=== PATIENT | male | born 1960 | race Caucasian/White ===

== ENCOUNTER 2019-12-09 06:24 | Observation (INO) ==
--- NOTE | 2019-11-19 14:46 | PAT Medication Instructions ---
Medication Instructions Date of Service November 19, 2019 Home Medications Medication Instructions Recorded miscellaneous medical supply #1 ea 11/11/18 loratadine 10 mg tablet 10 mg PO QAM atorvastatin 20 mg PO QPM celecoxib [Celebrex] 200 mg PO DAILY PRN clobetasol 1 appln TOP BID PRN clotrimazole-betamethasone 1 appln TOP BID PRN finasteride [Propecia] 1 mg PO QAM omeprazole 20 mg PO QPM ASK your surgeon for instructions celecoxib [Celebrex] 200 mg PO DAILY PRN STOP taking 24 hours before surgery clobetasol 1 appln TOP BID PRN clotrimazole-betamethasone 1 appln TOP BID PRN DO NOT take the morning of surgery loratadine 10 mg tablet 10 mg PO QAM Take morning of surgery With a small sip of water, OTHERWISE NOTHING TO EAT OR DRINK AFTER MIDNIGHT: finasteride [Propecia] 1 mg PO QAM Take evening before surgery atorvastatin 20 mg PO QPM omeprazole 20 mg PO QPM Other Notes If you have any questions please call us at [phone] or [phone] or [phone] or [phone]
--- NOTE | 2019-11-24 15:03 | Anesthesiology Consultation ---
Date of Service November 24, 2019 Assessment & Plan (1) Encounter for pre-operative examination: COVID Status: As of 11/23 assessment, patient denies travel to endemic area, known exposure/sick contacts, or symptoms of COVID19. Patient instructed that they and their household members must follow strict social distancing guidelines, wear a mask in public and avoid travel for 14 days prior to surgery. Preoperative COVID19 testing to be completed prior to surgery per surgeon's a rrangements. Patient made aware to self-isolate as much as possible between COVID testing and surgery. Chart Review Chart Review: Acceptable Risk for Surgery and Patient seen in Pre Admission Testing Teaching & Discussion Instructed NPO after midnight before surgery, except medications with 15 cc of water. Medication instructions provided according to the PAT guidelines. History Surgery Operation Date: 12/09/19 07:45 Proposed Procedures p C5-C7 Anterior Cervical Discectomy and Fusion, Spinal Cord Monitoring - Mateusz Kendall DO Height/Weight Height: 6 ft Weight: 96.7 kg Allergies Allergy/AdvReac Type Severity Reaction Status Date / Time Penicillins Allergy Mild Unknown Verified 11/18/19 11:59 Medications Home Medications Medication Instructions Recorded Confirmed Last Taken loratadine 10 mg tablet 10 mg PO QAM 08/20/18 11/18/19 Unknown miscellaneous medical supply #1 ea 11/11/18 11/18/19 Unknown atorvastatin 20 mg PO QPM 11/18/19 11/18/19 Unknown celecoxib [Celebrex] 200 mg PO DAILY PRN 11/18/19 11/18/19 Unknown clobetasol 1 appln TOP BID PRN 11/18/19 11/18/19 Unknown clotrimazole-betamethasone 1 appln TOP BID PRN 11/18/19 11/18/19 Unknown finasteride [Propecia] 1 mg PO QAM 11/18/19 11/18/19 Unknown omeprazole 20 mg PO QPM 11/18/19 11/18/19 Unknown Past Medical History Medical History Barretts esophagus GERD (gastroesophageal reflux disease) Hyperlipemia Migraines Osteoarthritis Exercise / Class Metabolic Activity II 4-5 Yardwork/Stairs/Walk up hill Past Family History Family History Father Prostate cancer Hypertension Unknown Hyperthyroidism Mother Parkinson disease Other No family history of adverse response to anesthesia Denies family history of Ovarian cancer Myocardial infarction Breast cancer Colorectal cancer Past Surgical History Surgical History History of colonoscopy History of esophagogastroduodenoscopy (EGD) History of lumbar laminectomy L5-S1 2006 History of root canal procedure Past Anesthesia History No Hx of Anesthesia Complications and No Family Hx of Anesthesia Complications History of PONV No Hx of PONV and No Hx of Motion Sickness STOP BANG Total 4 Social History Smoking Status: Never smoker Do You Dip or Chew Tobacco: No Hx Alcohol Use: Yes Alcohol type: beer, wine and hard liquor alcohol intake frequency: a few times a week Hx Substance Use: Yes substance use type: marijuana Last Used Substance Other:: 2 weeks ago Review of Systems Pt denies any recent chest pain, shortness of breath, palpitations, cough, fever, URI, or uncontrolled acid reflux. Physical Exam Vital Signs BP: 125/75 P: 64bpm SPO2: 97% RA T: 98.6 F R: 16 ENMT Mouth: + dental restorations (2 crowns on R lower side); no chipped teeth and no loose teeth Thyromental Distance: > or= 3.5 Finger Breadths Mallampati Class: II Neck normal visual inspection; neck extension not limited Respiratory normal respiratory effort Auscultation: lungs clear to auscultation bilaterally Cardiovascular Rate/Rhythm: regular rate and regular rhythm Heart Sounds: no murmur Vessels: no carotid bruit Extremities: no edema Testing Laboratory Results PT 10.6 Seconds (9.0-12.0) 11/24/19 15:10 INR 1.0 (0.9-1.1) 11/24/19 15:10 APTT 29.6 Seconds (21.0-31.0) 11/24/19 15:10 Urine Color Yellow 11/24/19 15:10 Urine Appearance Clear (Clear) 11/24/19 15:10 Urine pH 5.0 (4.5-7.5) 11/24/19 15:10 Ur Specific [place] 1.021 (1.000-1.030) 11/24/19 15:10 Urine Protein Negative (Negative) 11/24/19 15:10 Urine Glucose (UA) Negative (Negative) 11/24/19 15:10 Urine Ketones Negative (Negative) 11/24/19 15:10 Urine Nitrite Negative (Negative) 11/24/19 15:10 Ur Leukocyte Esterase Negative (Negative) 11/24/19 15:10 Blood Type O Positive 11/24/19 15:10 Antibody Screen NEGATIVE 11/24/19 15:10 11/13/19 WBC: 5.22 H/H: 15.4/46.3 PLATELETS: 250 SODIUM: 141 POTASSIUM: 4.1 CHLORIDE: 109 CO2: 26 BUN: 14 CREATININE: 0.95 GLUCOSE: 86 Electrocardiogram Date: 11/24/19 Findings: + SB @ (57bpm) Chest X-Ray Date: 11/24/19 Findings: + NAD
--- NOTE | 2019-11-24 15:40 | XRay Report ---
TWO VIEW CHEST CLINICAL HISTORY: Preoperative examination. FINDINGS: PA and lateral chest radiographs are compared to study dated 05/22/2013. The cardiomediastin al silhouette is unremarkable. The lungs and pleural spaces are clear. There is no pneumothorax. The bony thorax appears intact. IMPRESSION: No active disease in the chest. ACT 112: Negative or not required by law. Electronically signed by: Ilia Herrmann M.D. 11/24/2019 3:38 PM
[2019-11-24 16:09] LABS: Appearance Urine Clear (Clear); Bilirubin Urine Negative (Negative); Blood Urine Negative (Negative); Color Urine Yellow; Glucose Urine UA Negative (Negative); Ketones Urine Negative (Negative); Leukocyte Esterase Urine Negative (Negative); Nitrite Urine Negative (Negative); Protein Urine Negative (Negative); Specific Gravity Urine 1.021 (1.000-1.030); Urobilinogen Urine Negative (Negative)
[2019-11-24 16:32] LABS: Partial Thromboplastin Ratio 1.1; Partial Thromboplastin Time 29.6 Seconds (21.0-31.0); Prothrombin Time 10.6 Seconds (9.0-12.0)
--- NOTE | 2019-11-25 06:12 | Electrocardiogram Report ---
Test Reason : Blood Pressure : / mmHG Vent. Rate : 057 BPM Atrial Rate : 057 BPM P-R Int : 162 ms QRS Dur : 080 ms QT Int : 456 ms P-R-T Axes : 041 059 023 degrees QTc Int : 443 ms Sinus bradycardia Otherwise normal ECG No previous ECGs available Confirmed by Brice Landaverde ([id number]) on 11/25/2019 6:12:24 AM Referred By: Mateusz Kendall Confirmed By:Brice Landaverde
[~2019-12-09 06:24] MED LIST: CLINDAMYCIN 600 MG/54 ML BAG IV SCH; LR 15ML/HR IV SCH
[2019-12-09] MEDS ORDERED: MIDAZOLAM HCL 1 MG/ML 2ML VIAL ONE (06:43)
[2019-12-09] MEDS ORDERED: PROPOFOL IV EMULSION 10 MG/ML 20 ML VIAL IV ONE (06:43)
[2019-12-09] MEDS ORDERED: ONDANSETRON INJ 2 MG/ML 2 ML VIAL ONE (06:43)
[2019-12-09] MEDS ORDERED: LIDOCAINE HCL 2% 2 ML VIAL/AMP(20MG/ML) INFIL ONE (06:43)
[2019-12-09] MEDS ORDERED: fentaNYL citrate 100 MCG/2 ML VIAL ONE (06:43)
[2019-12-09] MEDS ORDERED: ROCURONIUM BROMIDE 10 MG/ML 5 ML VIAL IV ONE ×5 (06:46→08:30)
[2019-12-09] MEDS ORDERED: SUCCINYLCHOLINE 100MG/5ML SYR IV ONE (06:46)
[2019-12-09] MEDS ORDERED: PROPOFOL IV EMULSION 10 MG/ML 100 ML VIAL IV ONE (06:46)
[2019-12-09] MEDS: GABAPENTIN 600 MG DOSE PO SCH (06:58)
[2019-12-09] MEDS ORDERED: HYDROmorphone INJ 1 MG/ML SYRINGE IV PRN (07:01)
[2019-12-09] MEDS ORDERED: PHENYLEPHRINE 100MCG/ML 5ML SYR IV PRN (07:01)
[2019-12-09] MEDS ORDERED: ePHEDrine sulfate 50 MG/ML AMP IV PRN (07:01)
[2019-12-09] MEDS ORDERED: LABETALOL HCL IV 5 MG/ML 20ML IV PRN (07:01)
[2019-12-09] MEDS ORDERED: ATROPINE SULFATE 0.1 MG/ML 10ML SYR IV PRN (07:01)
[2019-12-09] MEDS ORDERED: MEPERIDINE HCL 25 MG/ML CARP/VIAL IV PRN (07:01)
[2019-12-09] MEDS ORDERED: ONDANSETRON INJ 2 MG/ML 2 ML VIAL IV PRN (07:01)
[2019-12-09] MEDS ORDERED: BACITRACIN INJ 50,000 UNIT VIAL ONE (07:12)
--- NOTE | 2019-12-09 07:31 | History & Physical Bridge Note ---
Date of Service December 09, 2019 History & Physical Bridge Note I have examined the patient, reviewed the History & Physical and in the interval since the performance of the History & Physical I have noted the following changes of clinical significance: no changes noted
--- NOTE | 2019-12-09 07:35 | History & Physical Report ---
Date of Service December 09, 2019 Assessment & Plan (1) Cervical stenosis of spinal canal: Admission and Anticipated Discharge Date Admission Date: C5-C7 anterior cervical discectomy and fusion History of Present Illness Chief Complaint: Neck and arm pain Primary Care Provider: Alex Mcmahan MD This is a 51-year-old male who presents with chronic persistent neck and arm pain after failing course of nonoperative care is here for surgical invention. Allergies Allergy/AdvReac Type Severity Reaction Status Date / Time Penicillins Allergy Mild Unknown Verified 12/09/19 06:39 Home Medications Home Medications Medication Instructions Recorded Confirmed Type loratadine 10 mg tablet 10 mg PO QAM 08/20/18 12/09/19 History miscellaneous medical supply #1 ea 11/11/18 11/26/19 Rx atorvastatin 20 mg PO QPM 11/18/19 12/09/19 History celecoxib [Celebrex] 200 mg PO DAILY PRN 11/18/19 12/09/19 History clobetasol [Temovate] 1 appln TOP BID PRN 11/18/19 12/09/19 History clotrimazole-betamethasone 1 appln TOP BID PRN 11/18/19 12/09/19 History finasteride [Propecia] 1 mg PO QAM 11/18/19 12/09/19 History omeprazole 20 mg PO QPM 11/18/19 12/09/19 History Past Med/Surg History Medical History Barretts esophagus GERD (gastroesophageal reflux disease) Hyperlipemia Migraines Osteoarthritis Surgical History History of colonoscopy History of esophagogastroduodenoscopy (EGD) History of lumbar laminectomy L5-S1 2006 History of root canal procedure Family History Father Prostate cancer Hypertension Unknown Hyperthyroidism Mother Parkinson disease Other No family history of adverse response to anesthesia Denies family history of Ovarian cancer Myocardial infarction Breast cancer Colorectal cancer Social History Smoking Status: Never smoker Second Hand Exposure: No; Do You Dip or Chew Tobacco: No; Hx Alcohol Use: Yes Alcohol type: beer, wine and hard liquor Alcohol Intake Frequency: 2-3 x/Week Hx Substance Use: No Preferred Language: Fijian Communication Ability: Effective Visual Impairment: No Limitations Hearing Ability: Normal Railway [employer] Manager Required: No Beliefs That Will Affect Care: None marital status: Current Living Situation: Alone current occupational status: employed current occupation: Landlord How many Children do You have: 0 Feels Safe at Home: Yes Safety Concerns: Feels Safe At This Time Childhood Exposure to Second-Hand Smoke: No caffeine: Yes Dental Care, Regularly: Yes Physical Activity Frequency: 3-4 Times per Week Seatbelt Use: never Sunscreen Use: No Assistive Devices: None Physical Exam Physical Exam: Patient is alert and oriented neurologically intact. Heart regular rate and rhythm. Lungs clear to auscultation. Results & Data ([facility]) Vital Signs (Past 12 Hours) Vital Signs Temp Pulse Resp BP Pulse Ox 12/09/19 06:47 36.6 C 66 20 120/92 93
[2019-12-09] MEDS ORDERED: HYDROmorphone INJ 2 MG/ML SYR/VIAL ONE (08:11)
[2019-12-09] MEDS ORDERED: FLOSEAL HEMOSTATIC MATRIX 10ML TOP ONE (08:30)
--- NOTE | 2019-12-09 09:22 | Operative Report ---
Post Operative Report Pre & Post Diagnosis Operation Date: 12/09/19 07:45 Pre-Op Diagnosis: Spinal Stenosis, Cervical Region Post-Op Diagnosis: Spinal Stenosis, Cervical Region I identified the patient and participated in the time-out.: Yes Procedure Operation Date: 12/09/19 07:45 Actual Procedures #1 anterior cervical discectomy with bilateral foraminotomies C5-6 and C6-7. #2 anterior cervical arthrodesis C5-6 and C6-7. #3 placement of Inspira cage 7 mm in height filled with DBM at C5-6 and 8 mm in height at C6-C7. #4 application 5 complete screws across C5 to see 7. Surgeon Mateusz Kendall, Social Media Manager Ramona Pulliam Estimated Blood Loss 20 Findings Consistent with Post-Op Diagnosis Specimens None Indications This is a 59-year-old male who presents with bulge diagnosis from aggressive nonoperative care is here for debridement procedure. Description of Procedure Patient is met with identified informed consent obtained. Patient was then taken to the operative suite underwent a vaginal placement spine position just above the head [place] head prepared over the promises well-padded eyes inspected to ensure no external pressure placed upon up at this point the anterior cervical spine was prepped and draped in normal sterile fashion. The assistance of fluoroscopy identified the C5-6 level and a transverse incision was placed along the right anterior aspect of the cervical spine overlying his region. Sharp dissection with the assistance of bipolar electrocautery was performed down to and exposing the anterior cervical spine from C5-C7. A separate retractor was placed. Then performed a complete discectomy C5-6 out to the uncovertebral joints bilaterally. [place] distracting pins utilized to assist in visualization. I removed all posterior annular fibers longitudinally with bilateral foraminotomies performed. Endplates were then burred to subcort ical bleeding bone and a 7 mm spiral cage filled with DBM tapped in position. I then proceeded to C6-C7. [place] distracting pins again utilized. Removed all posterior annular fibers longitudinal limit bilateral foraminotomies performed. Endplates producing cortical bone and an 8 mm spiral cage filled with DBM tapped in position. Distraction apparatus was removed all anterior osteophytes produ gabino with cortical surface and carnes plate was applied with the assistance of fluoroscopy. The incision was then copiously irrigated explored to ensure no damage to surrounding structures remaining bleeding. 10 round PIERCE drain inserted. The incision was then closed with 2-0 Vicryl in the fascia and a 4 Monocryl for final skin closure. Steri-Strips sterile dosings placed. Patient woken taken back in stable condition. Please note spinal cord monitoring was relaxed that the procedure and no changes noted. Lastly caregiver was present at the entire surgery to vault the patient positioning complex portions of the surgery and possible closure. I attest to the content of the Intraoperative Record and any orders documented therein. Any exceptions are noted below.
--- NOTE | 2019-12-09 09:58 | Fluoroscopy Report ---
FL cervical 2-3V CLINICAL HISTORY: ACDF C5-C7 COMPARISON STUDY: None. FLUOROSCOPY TIME: 12 seconds. FINDINGS: 3 fluoroscopic spot images of the cervical spine demonstrate anterior cervical discectomy a nd fusion from C5 through C7. The hardware appears intact. An endotracheal tube is in place. IMPRESSION: Fluoroscopy provided for C5-C7 ACDF. ACT 112: Negative or not required by law. Electronically signed by: Alvin Sapp M.D. 12/09/2019 9:57 AM
[2019-12-09] MEDS: fentaNYL citrate 100 MCG/2 ML VIAL IV PRN ×2 (10:10→10:15)
--- NOTE | 2019-12-09 10:51 | Anesthesiology Progress Note ---
Date of Service December 09, 2019 Anesthesia Post Procedure Vital Signs Vital Signs: Temp Pulse Pulse Resp BP BP Pulse Ox 12/09/19 10:45 58 L 16 135/82 97 12/09/19 10:35 51 L 16 132/81 97 12/09/19 10:25 36.0 C L 51 L 16 125/79 94 12/09/19 10:15 53 L 14 100/47 L 94 12/09/19 10:05 48 L 15 129/82 96 12/09/19 09:55 52 L 16 134/92 95 12/09/19 09:46 36.1 C L 64 16 134/90 97 12/09/19 06:47 36.6 C 66 20 120/92 93 Pain Intensity Posterior Neck: Pain Intensity: 4 Transfer of Care Handoff Completed per policy Notes Mental Status: alert / awake / arousable Patient Amnestic to Procedure: Yes Nausea / Vomiting: adequately controlled Pain: adequately controlled Airway Patency, RR, SpO2: stable & adequate BP & HR: stable & adequate Hydration State: stable & adequate Anesthetic Complications: no major complications apparent and Pt Satisfied with anesthetic care Notes: The patient is awake and comfortable. His neck does not appear swollen.
[2019-12-09] MEDS ORDERED: hydrOXYzine HCl 25 MG TAB PO PRN (11:30)
[2019-12-09] MEDS ORDERED: RACEPINEPHRINE 2.25% NEBU SOLN 0.5 ML VIAL INH PRN (11:30)
[2019-12-09] MEDS ORDERED: ONDANSETRON 4 MG OD TAB PO PRN (11:30)
[2019-12-09] MEDS ORDERED: FAMOTIDINE 20 MG TAB PO PRN (11:30)
[2019-12-09] MEDS ORDERED: ACETAMINOPHEN 1,000 MG/100 ML VIAL IV PRN (11:30)
[2019-12-09] MEDS ORDERED: DO NOT ADMINISTER PNEUMOCOCCAL VACCINE PRN (11:30)
[2019-12-09] MEDS ORDERED: LORazepam 0.5 MG TAB PO PRN (11:30)
[2019-12-09] MEDS ORDERED: DO NOT ADMINISTER FLU VACCINE PRN (11:30)
[2019-12-09] MEDS ORDERED: diphenhydrAMINE Capsule 25 MG CAP PO PRN (11:30)
[2019-12-09] MEDS ORDERED: ACETAMINOPHEN 500 MG TAB PO PRN (11:30)
[2019-12-09] MEDS ORDERED: oxyCODONE HCL IR 5 MG TAB (IMMEDIATE RELEASE) PO PRN (11:30)
[2019-12-09] MEDS ORDERED: HYDROmorphone INJ 0.5 MG/0.5 ML SYR IV PRN (11:30)
[2019-12-09] MEDS ORDERED: METOCLOPRAMIDE HCL INJ 5 MG/ML 2 ML VIAL IV PRN (11:30)
[2019-12-09] MEDS ORDERED: MAGNESIUM HYDROXIDE SUSP 30 ML UDC PO PRN (11:30)
[2019-12-09] MEDS ORDERED: SOD PHOSPHATE/SOD BIPHOSPHATE ENEMA 132 ML BTL PR PRN (11:30)
[2019-12-09] MEDS ORDERED: ALUMINUM/MAGNESIUM SUSP 30 ML UDC PO PRN (11:30)
[2019-12-09] MEDS ORDERED: NALOXONE HCL 0.4 MG/1 ML VIAL/CARP IV PRN (11:30)
[2019-12-09] MEDS ORDERED: LORazepam 0.5 MG/1 ML VIAL IV PRN (11:30)
[2019-12-09] MEDS ORDERED: DEXAMETHASONE SOD PHOSPHATE 8 MG in SYRINGE 0 ML IV PRN (11:30)
[2019-12-09] MEDS ORDERED: PROMETHAZINE HCL 12.5 MG in SODIUM CHLORIDE 0.9% 50 ML IV PRN (11:30)
[2019-12-09] MEDS ORDERED: CLOBETASOL PROPIONATE 0.05% OINT 15 GM TUBE EXT PRN (11:42)
[2019-12-09] MEDS: LACTATED RINGER'S 1,000 ML IV SCH ×2 (14:10→23:46)
[2019-12-09] MEDS: ONDANSETRON INJ 2 MG/ML 2 ML VIAL IV PRN (14:11)
[2019-12-09] MEDS: HYDROmorphone INJ 1 MG/ML SYRINGE IV PRN ×2 (14:25→18:03)
[2019-12-09] MEDS: CLINDAMYCIN 600 MG in DEXTROSE 5% 50 ML IV SCH ×2 (16:25→23:47)
[2019-12-09] MEDS ORDERED: DOCUSATE SODIUM/SENNA 50/8.6MG TAB PO SCH (21:00)
[2019-12-09] MEDS ORDERED: ATORVASTATIN 20 MG TAB PO SCH (21:00)
[2019-12-09] MEDS ORDERED: PANTOprazole 40 MG TAB PO SCH (21:00)
[2019-12-09] MEDS: traMADol HCL 50 MG TABLET PO PRN (23:43)
[2019-12-10] MEDS: GABAPENTIN 600 MG DOSE PO SCH (05:52)
[2019-12-10] MEDS ORDERED: POLYETHYLENE (MIRALAX) 17 GM PACK PO SCH (06:00)
[2019-12-10] MEDS: ONDANSETRON INJ 2 MG/ML 2 ML VIAL IV PRN (07:33)
[2019-12-10] MEDS: traMADol HCL 50 MG TABLET PO PRN (07:33)
[2019-12-10] MEDS ORDERED: DEXAMETHASONE SOD PHOSPHATE 6 MG in SYRINGE 0 ML IV ONE (07:45)
[2019-12-10] MEDS ORDERED: LORATADINE 10 MG TAB PO SCH (09:00)
--- NOTE | 2019-12-10 12:31 | Discharge Summary ---
Date of Service December 10, 2019 Admission HPI Per Admitting Provider This is a 51-year-old male who presents with chronic persistent neck and arm pain after failing course of nonoperative care is here for surgical invention. Principal Diagnosis Cervical spinal stenosis with radiculopathy Discharge Data Allergies Allergy/AdvReac Type Severity Reaction Status Date / Time Penicillins Allergy Mild Unknown Verified 12/09/19 06:39 Procedures Performed Operation Date: 12/09/19 07:45 Actual Procedures p C5-C7 Anterior Cervical Discectomy and Fusion, Spinal Cord Monitoring - Mateusz Kendall DO Ordered Studies 12/09/19 07:45 FL cervical 2-3V Routine FL fluoroscopy <1hr Routine Hospital Course (1) Cervical stenosis of spinal canal: Underwent anterior cervical discectomy fusion tolerated so was taken to orthopedic for postoperative. Postop day 1 he was swallowing well pain improved PIERCE drain decreasing probably. Excellent strength testing. Subsequent discharge home. Discharge orders instructions from the chart for further review. Total Time Total Time Spent Total Time Spent (In Minutes): 20 minutes Discharge Plan Discharge Items Patient Disposition: Home - Self-Care Reason For Visit: Spinal Stenosis, Cervical Region Discharge Diagnosis: Cervical spinal stenosis with radiculopathy Activity: As commented below Non-emergency contact: Primary Care Provider Call non-emergency contact if: you have any medication questions Follow-up/Referrals: Alex Mcmahan MD [Primary Care Provider] - Diet: Regular Addtl Attending Provider Instructions: ACTIVITY RECOMMENDATIONS: SELF CARE INSTRUCTIONS AFTER CERVICAL FUSIONS 1. No smoking. Smoking drastically decreases the chance of a solid fusion. 2. No bending, lifting more than 5 pounds, or twisting (roll like a log when turning in bed). 3. You may shower 3 days after surgery. Thoroughly dry wound. Do not soak in the tub. 4. Cervical collar: Must be worn at all times including sleeping. You may remove the brace only to bath, eat and if you are sitting in a recliner. 5. Please walk as much as you can for exercise. Gradually increase the distance that you walk as your endurance increases. SPECIAL CARE INSTRUCTIONS: VERY IMPORTANT TO READ AND REVIEW A. Do not take any anti-inflammatory medications (i.e. Indocin, Advil, Aspirin, Naprosyn, Aleve, Motrin, etc.) as these may inhibit the chance of a solid fusion. Tylenol is okay to take. B. Your surgical incision has been closed with a cosmetic suture under the skin that will dissolve in about 6 weeks. In 14 days, you can use a pair of clean scissors and cut the suture that is left outside of the skin at the ends of your incision. C. Complications are uncommon, but please contact us if you have any signs or symptoms of: 1. wound infection (fever higher than 102.5 degrees F, redness, separation of wound, drainage, or increasing pain from the incision) 2. blood clots in legs (pain, swelling, redness and warmth in legs) 3. urinary tract infection (fever higher than 102.5 degrees, burning upon urination or increased frequency of urination) 4. nerve problems (inability to walk on your toes or heels, numbness, loss of bowel or bladder control) 5. any other symptoms that concern you. D. Please call the office at if you have any concerns or questions about your operation or recovery. MANAGING PAIN AFTER SPINAL SURGERY 1. Narcotic medication is intended for short-term use and will be provided for surgical pain. Surgical pain usually lasts for a period of 4-6 weeks. Narcotic medication includes Percocet, Vicodin, Darvocet, Tylenol #3 or Lortab. 2. Longer-term pain is more appropriately treated with non-narcotic medication such as Tylenol ES. 3. Muscle spasm is not appropriately treated with narcotics. Muscle relaxers such as Soma, Flexeril or Skelaxin can be used along with Tylenol ES. 4. Remember that we all live with some "aches and pains". This is not unusual or uncommon after an injury or as we get older. 5. We will provide appropriate medication within the normal guidelines of their prescribed use. We will also be very cautious and aware of potential abuse and extended duration of patients' medication needs. 6. Please allow 2-3 days to process refills. Prescriptions will not be mailed but must be picked up at the office. FOLLOW UP VISIT: Keep your scheduled follow-up appointment. Any questions, please call the office at . Pending Studies at Discharge: No Stand-Alone Forms: My [facility] [employer], Opioid Pain Management, Smoking Cessation Medications and DC Order Prescriptions: New tramadol 50 mg tablet 50 mg PO Q6H PRN (Reason: pain, moderate) Qty: 20 RF: 0 oxycodone 5 mg tablet 5 mg PO Q6H PRN (Reason: pain, severe) Qty: 15 RF: 0 Continued (DME) Cock-Up Wrist Splint Misc See Dose Instructions .ROUTE .MEDSUPPLY Qty: 1 RF: 0 loratadine [Claritin] 10 mg tablet 10 mg PO QAM RF: 0 celecoxib [Celebrex] 200 mg capsule 200 mg PO DAILY PRN (Reason: Pain) RF: 0 atorvastatin 20 mg tablet 20 mg PO QPM RF: 0 clotrimazole-betamethasone 1-0.05 % cream 1 appln TOP BID PRN (Reason: ud) RF: 0 clobetasol [Temovate] 0.05 % ointment 1 appln TOP BID PRN (Reason: ud) RF: 0 finasteride [Propecia] 1 mg tablet 1 mg PO QAM RF: 0 omeprazole 20 mg tablet,delayed release (DR/EC) 20 mg PO QPM RF: 0 Discharge Orders: Discharge Order (Routine); Ordered 12/10/19 Ordered By: Mateusz Anderson/Other Patient Handouts: DVT Post Op Prevention Admission Data Admit Date/Time: 12/09/19 09:48 Attending Provider: Mateusz Kendall Admit Provider: Mateusz Kendall Primary Care Provider: Alex Mcmahan Other Interventions: Discharge Summary Assessment (RN) Last Done: 12/10/19 10:43
[2019-12-11] MEDS ORDERED: bisacodyL 10 MG SUPP PR PRN (09:23)
== END 2019-12-10 12:50 | disposition home or self-care (01) ==
LOC: ASU 06:24 → 3E 06:24

== ENCOUNTER 2020-10-26 06:10 | Inpatient (IN) ==
--- NOTE | 2020-10-10 12:48 | PAT Medication Instructions ---
Medication Instructions Date of Service October 10, 2020 Home Medications Medication Instructions Recorded Cock-Up Wrist Splint #1 ea 11/11/18 oxycodone 5 mg tablet 5 mg PO Q6H PRN #15 tab 12/09/19 tramadol 50 mg tablet 50 mg PO Q6H PRN #20 tab 12/09/19 omeprazole 20 mg tablet,delayed 20 mg PO QPM #90 tab 04/01/20 release atorvastatin 20 mg tablet 20 mg PO QPM #90 tab 04/04/20 meloxicam 7.5 mg tablet 7.5 mg PO DAILY PRN #30 tab 08/23/20 loratadine 10 mg tablet (Claritin) 10 mg PO QAM clobetasol 0.05 % topical ointment (Temovate) 1 appln TOP BID PRN clotrimazole-betamethasone 1 %-0.05 % topical cream 1 appln TOP BID PRN finasteride 1 mg tablet (Propecia) 1 mg PO QAM oxycodone 5 mg tablet 5 mg PO Q6H PRN tramadol 50 mg tablet 50 mg PO Q6H PRN omeprazole 20 mg tablet,delayed release 20 mg PO QPM atorvastatin 20 mg tablet 20 mg PO QPM meloxicam 7.5 mg tablet 7.5 mg PO DAILY PRN ASK your surgeon for instructions meloxicam 7.5 mg tablet 7.5 mg PO DAILY PRN STOP taking 24 hours before surgery clobetasol 0.05 % topical ointment (Temovate) 1 appln TOP BID PRN clotrimazole-betamethasone 1 %-0.05 % topical cream 1 appln TOP BID PRN DO NOT take the morning of surgery loratadine 10 mg tablet (Claritin) 10 mg PO QAM Take morning of surgery With a small sip of water, OTHERWISE NOTHING TO EAT OR DRINK AFTER MIDNIGHT: finasteride 1 mg tablet (Propecia) 1 mg PO QAM oxycodone 5 mg tablet 5 mg PO Q6H PRN(okay to take up to 4 hours prior to surgery if needed) tramadol 50 mg tablet 50 mg PO Q6H PRN (okay to take up to 4 hours prior to surgery if needed) Take evening before surgery oxycodone 5 mg tablet 5 mg PO Q6H PRN (if needed) tramadol 50 mg tablet 50 mg PO Q6H PRN (if needed) omeprazole 20 mg tablet,delayed release 20 mg PO QPM atorvastatin 20 mg tablet 20 mg PO QPM Other Notes If you have any questions please call us at [phone] or [phone] or [phone] or [phone]
--- NOTE | 2020-10-12 11:20 | Anesthesiology Consultation ---
Date of Service October 12, 2020 Assessment & Plan (1) Encounter for pre-operative examination: Chart Review Chart Review: Acceptable Risk for Surgery (pending preop Covid testing results ) and Patient seen in Pre Admission Testing Per PAT appt on 10/12/20, patient denies any recent travel or large group activities. No known Covid positive contacts or Covid related symptoms. No known Covid infection in the past 90 days. Pt is vaccinated for Covid. Preop Covid testing scheduled 10/24/20 = will await results. Educated on importance of self quarantining, social distancing and wearing mask in public for the patient one week prior to surgery and after Covid testing done C5-C7 ACDF 12/09/19= Done under GA with Grade 1 view with Glidescope #4 used. ETT# 7.5. No anesthesia issues noted per anesthesia record Teaching & Discussion Pre-Anesthesia Teaching/Discussion Notes: Instructed NPO after midnight before surgery,except medications with 15 cc of water. Medication instructions provided according to the [facility] guidelines. History Surgery Operation Date: 10/26/20 07:45 Proposed Procedures p L4-S1 Decompression Fusion Spinal Cord Monitoring - Mateusz Kendall DO Height/Weight Height: 6 ft Weight: 94.2 kg Allergies Allergy/AdvReac Type Severity Reaction Status Date / Time Penicillins Allergy Mild Unknown Verified 10/10/20 08:03 Medications Home Medications Medication Instructions Recorded Confirmed Last Taken loratadine 10 mg tablet (Claritin) 10 mg PO QAM 08/20/18 10/10/20 12/08/19 20:00 Cock-Up Wrist Splint #1 ea 11/11/18 11/26/19 Unknown clobetasol 0.05 % topical ointment 1 appln TOP BID PRN 11/18/19 10/10/20 12/02/19 (Temovate) clotrimazole-betamethasone 1 1 appln TOP BID PRN 11/18/19 10/10/20 11/25/19 %-0.05 % topical cream omeprazole 20 mg tablet,delayed 20 mg PO QPM #90 tab 04/01/20 10/10/20 Unknown release atorvastatin 20 mg tablet 20 mg PO QPM #90 tab 04/04/20 10/10/20 Unknown meloxicam 7.5 mg tablet 7.5 mg PO DAILY PRN #30 tab 08/23/20 10/10/20 Unknown Past Medical History Medical History Allergic rhinitis due to pollen Barretts esophagus No issues with Dermatitis, eczematoid No current issues GERD (gastroesophageal reflux disease) Well controlled and stable Hyperlipemia Migraines Osteoarthritis Exercise / Class Metabolic Activity II 4-5 Yardwork/Stairs/Walk up hill (one flight of stairs - no chest pain or SOB ) Past Family History Family History Father Prostate cancer Hypertension Unknown Hyperthyroidism Mother Parkinson disease Other No family history of adverse response to anesthesia Denies family history of Ovarian cancer Myocardial infarction Breast cancer Colorectal cancer Past Surgical History Surgical History History of colonoscopy History of esophagogastroduodenoscopy (EGD) History of lumbar laminectomy L5-S1 2005 History of root canal procedure History of tonsillectomy Past Anesthesia History No Hx of Anesthesia Complications and No Family Hx of Anesthesia Complications History of PONV No Hx of PONV and No Hx of Motion Sickness Social History Smoking Status: Never smoker Do You Dip or Chew Tobacco: No Hx Alcohol Use: Yes Alcohol type: beer, wine and hard liquor alcohol intake frequency: a few times a week Hx Substance Use: Yes substance use type: marijuana Substance Use Type Other:: few times per month (educated no marijuana DOS) Last Used Substance Other:: 2 weeks ago Review of Systems Patient denies chest pain, shortness of breath, dyspnea on exertion, cough, wheezing, palpitations. No hx of seizures, stroke, ND, apnea/snoring. No hx of blood clots or blood transfusions Physical Exam Vital Signs VITALS BP 132/73 P 56 TEMP 97.5 SP02 98% RESP 16 Constitutional no acute distress ENMT Mouth: no TMJ clicking Thyromental Distance: > or= 3.5 Finger Breadths (4.0) Mallampati Class: III Caps to molars Neck neck extension not limited Respiratory normal respiratory effort; no respiratory distress Auscultation: lungs clear to auscultation bilaterally; no wheezes Cardiovascular Rate/Rhythm: regular rate and regular rhythm Heart Sounds: no murmur Vessels: no carotid bruit Musculoskeletal Spine: no pain with cervical ROM Extremities: extremities normal to inspection Psychiatric Orientation: alert Lab Results Anesthesia Preop Results Results Anesthesia Widget: WBC 6.02 K/uL (4.8-10.8) 10/12/20 Hgb 15.0 g/dL (14.0-18.0) 10/12/20 Hct 44.8 % (42-52) 10/12/20 Plt 202 K/uL (130-400) 10/12/20 Na 140 mmol/L (136-145) 10/12/20 K 4.3 mmol/L (3.5-5.1) 10/12/20 Cl 110 mmol/L (98-107) H 10/12/20 CO2 28 mmol/L (21-32) 10/12/20 BUN 14 mg/dl (7-18) 10/12/20 Creat 0.93 mg/dl (0.6-1.4) 10/12/20 Glucose Level 88 mg/dl (70-99) 10/12/20 PT 9.8 Seconds (9.0-12.0) 10/12/20 PTT 27.1 Seconds (21.0-31.0) 10/12/20 INR 1.0 (0.9-1.1) 10/12/20 Urine Color Yellow 10/12/20 Urine Appearance Clear (Clear) 10/12/20 Urine pH 5.5 (4.5-7.5) 10/12/20 Urine Specific [place] 1.021 (1.000-1.030) 10/12/20 Urine Protein Negative (Negative) 10/12/20 Urine Glucose (UA) Negative (Negative) 10/12/20 Urine Ketones Negative (Negative) 10/12/20 Urine Blood Negative (Negative) 10/12/20 Urine Nitrite Negative (Negative) 10/12/20 Urine Bilirubin Negative (Negative) 10/12/20 Urine Urobilinogen Negative (Negative) 10/12/20 Urine Leukocyte Esterase Negative (Negative) 10/12/20 Blood Type O Positive 10/12/20 Antibody Screen NEGATIVE 10/12/20 Testing Electrocardiogram Date: 10/12/20 Findings: + SB @ (56bpm) Otherwise normal EKG per cardio Chest X-Ray Date: 10/12/20 Findings: + NAD
[~2020-10-26 06:10] MED LIST changes: +ACETAMINOPHEN 500 MG TAB PO SCH; +CeleBREX 200 MG CAP PO SCH; +GABAPENTIN 600 MG DOSE PO SCH
[2020-10-26] MEDS ORDERED: SUGAMMADEX SODIUM 200 MG/2 ML VIAL IV ONE (06:12)
[2020-10-26] MEDS ORDERED: MIDAZOLAM HCL 1 MG/ML 2ML VIAL ONE (06:32)
[2020-10-26] MEDS ORDERED: HYDROmorphone INJ 2 MG/ML SYR/VIAL ONE (06:32)
[2020-10-26] MEDS ORDERED: LIDOCAINE 2% 2 ML VIAL/AMP(20MG/ML) INFIL ONE (06:38)
[2020-10-26] MEDS ORDERED: ONDANSETRON INJ 2 MG/ML 2 ML VIAL ONE (06:38)
[2020-10-26] MEDS ORDERED: DEXAMETHASONE SOD INJ 4 MG/ML VIAL ONE (06:38)
[2020-10-26] MEDS ORDERED: ROCURONIUM BROMIDE 10 MG/ML 5 ML VIAL IV ONE ×2 (06:38→08:30)
[2020-10-26] MEDS ORDERED: PROPOFOL IV EMULSION 10 MG/ML 20 ML VIAL IV ONE (06:38)
--- NOTE | 2020-10-26 07:33 | History & Physical Bridge Note ---
Date of Service October 26, 2020 History & Physical Bridge Note I have examined the patient, reviewed the History & Physical and in the interval since the performance of the History & Physical I have noted the following changes of clinical significance: no changes noted
--- NOTE | 2020-10-26 07:34 | History & Physical Report ---
Date of Service October 26, 2020 Assessment & Plan (1) Neurogenic claudication due to lumbar spinal stenosis: Plan: L4-S1 decompression fusion History of Present Illness Chief Complaint: Back and leg pain Primary Care Provider: Alex Mcmahan MD This is a 60-year-old male who presents with car persistent back and leg pain. Failing course of nonoperative care is here for surgical invention. Allergies Allergy/AdvReac Type Severity Reaction Status Date / Time Penicillins Allergy Mild Unknown Verified 10/26/20 06:57 Home Medications Medication Instructions Recorded Confirmed Type loratadine 10 mg tablet (Claritin) 10 mg PO QAM 08/20/18 10/26/20 History Cock-Up Wrist Splint #1 ea 11/11/18 10/17/20 Rx clobetasol 0.05 % topical ointment 1 appln TOP BID PRN 11/18/19 10/26/20 History (Temovate) clotrimazole-betamethasone 1 1 appln TOP BID PRN 11/18/19 10/26/20 History %-0.05 % topical cream omeprazole 20 mg tablet,delayed 20 mg PO QPM #90 tab 04/01/20 10/26/20 Rx release atorvastatin 20 mg tablet 20 mg PO QPM #90 tab 04/04/20 10/26/20 Rx meloxicam 7.5 mg tablet 7.5 mg PO DAILY PRN #30 tab 08/23/20 10/26/20 Rx Past Med/Surg History Medical History Allergic rhinitis due to pollen Barretts esophagus Dermatitis, eczematoid GERD (gastroesophageal reflux disease) Hyperlipemia Migraines Osteoarthritis Surgical History History of colonoscopy History of esophagogastroduodenoscopy (EGD) History of lumbar laminectomy History of root canal procedure History of tonsillectomy Family History Father Prostate cancer Hypertension Unknown Hyperthyroidism Mother Parkinson disease Other No family history of adverse response to anesthesia Denies family history of Ovarian cancer Myocardial infarction Breast cancer Colorectal cancer Social History Smoking Status: Never smoker Second Hand Exposure: No; Do You Dip or Chew Tobacco: No; Tobacco Cessation Education Requested by Patient: No Hx Alcohol Use: Yes Alcohol type: beer, wine and hard liquor Alcohol Intake Frequency: 2-3 x/Week Hx Substance Use: No Preferred Language: Citizen [place] Communication Ability: Effective Visual Impairment: No Limitations Hearing Ability: Normal Commissions Analyst Required: No Beliefs That Will Affect Care: None marital status: Current Living Situation: Alone current occupational status: employed current occupation: Landlord How many Children do You have: 0 Other Information That Helps Us Care for You: No Feels Safe at Home: Yes Safety Concerns: Feels Safe At This Time Childhood Exposure to Second-Hand Smoke: No caffeine: Yes Dental Care, Regularly: Yes Physical Activity Frequency: 3-4 Times per Week Seatbelt Use: never Sunscreen Use: No Assistive Devices: None Physical Exam Physical Exam: Patient is alert and oriented Heart regular and rhythm Lungs clear to auscultation Results & Data ([facility]) Vital Signs (Past 12 Hours) Vital Signs Temp Pulse Resp BP Pulse Ox 10/26/20 07:03 37 C 56 L 18 130/84 96
[2020-10-26] MEDS ORDERED: BUPIVACAINE 0.5 % 5 MG/1 ML MPF 30ML VIAL ONE (07:37)
[2020-10-26] MEDS ORDERED: EPINEPHrine INJ 1 MG/ML AMP ONE (07:37)
[2020-10-26] MEDS ORDERED: ePHEDrine sulfate 50 MG/ML SYR ONE (08:13)
[2020-10-26] MEDS ORDERED: FLOSEAL HEMOSTATIC MATRIX 10ML TOP ONE (09:53)
--- NOTE | 2020-10-26 09:55 | Operative Report ---
Post Operative Report Pre & Post Diagnosis Operation Date: 10/26/20 07:45 Pre-Op Diagnosis: Interevertebral Disc Disorders with radiculopathy Lumbar spinal listhesis L5-S1 Post-Op Diagnosis: Same I identified the patient and participated in the time-out.: Yes Procedure Operation Date: 10/26/20 07:45 Actual Procedures #1 revision lumbar decompression with bilateral medial facetectomies and foraminotomies L4-5 L5-S1. #2 posterior spinal fusion L4-5 L5-S1. #3 placed posterior instrumentation L4-5 L5-S1. #4 interbody fusion L4-5 L5-S1. #5 placed a peek cage 13 x 26 mm at L4-5 and 10 x 26 mm at L5-S1. #6 placement locally harvested morselized autograft in the posterior gutters. #7 placement infuse collagen sponge combined with vitoss in the interbody space and posterior gutters. Surgeon Mateusz Kendall, [employer] Software Developer Ramona Pulliam Estimated Blood Loss 150 Findings See Below Specimens None Indications This is a 60-year-old male presents with above-mentioned diagnosis after failing course of nonoperative care is here for surgical invention. Description of Procedure Patient was met with identified informed consent obtained. Patient was then taken to the operative suite underwent a patient placed in a prone position the Srikanth table top López frame. All bony prominences well-padded eyes inspected to ensure no external pressure placed upon the. This point the lumbar spine was prepped and draped in a sterile fashion. Sharp dissection with the assistance of Bovie cartilage from down to and exposing the remaining lamina and transverse processes of L4-L5 and the sacral ala bilaterally. Obvious bilateral pars defect was also identified. Revision complete laminectomy of L5 L4 was performed including bilateral medial facetectomies and foraminotomies addressing severe spinal stenosis. Pedicle screws were then placed in L4-L5 and S1 levels bilaterally with assistance of fluoroscopy and the proper sized alpesh placed. Bilateral transforaminal portion right complete discectomy of L5-S1 was performed endplates curetted to subcortical bleeding bone and a 10 x 26 mm peek cage filled with I factor tapped in position. Then proceeded L4-L5 and again by way of a transforaminal portion right complete discectomy performed endplates curetted to subcortically bone and a 13 x 26 mm peek cage filled with I factor tapped in position. The rods and locked in final position bilaterally. The transverse processes of L4-L5 and the sacral ala burred to subcortical bleeding bone. I factor combined with the toxin locally harvested morselized autograft was then placed in the posterior gutters. 15 round PIERCE drain inserted. The incision was then closed with 1 Vicryl the fascia 2-0 Vicryl subcutaneously and 4 Monocryl for final skin closure. Steri-Strip sterile dressings placed. Patient will continue PACU stable condition. Please note spinal cord monitoring was utilized at the procedure no changes noted. Lastly Ramona Pulliam was present at the entire surgery involved the patient positioning complex portions of the surgery and final skin closure. I attest to the content of the Intraoperative Record and any orders documented therein. Any exceptions are noted below.
[2020-10-26] MEDS ORDERED: HYDROmorphone INJ 1 MG/ML SYRINGE ONE ×2 (10:28→10:52)
[2020-10-26] MEDS ORDERED: ONDANSETRON INJ 2 MG/ML 2 ML VIAL IV PRN ×2 (10:30→11:42)
[2020-10-26] MEDS ORDERED: ATROPINE SULFATE 0.1 MG/ML 10ML SYR IV PRN (10:30)
[2020-10-26] MEDS ORDERED: ePHEDrine sulfate 50 MG/ML AMP IV PRN (10:30)
[2020-10-26] MEDS ORDERED: HYDROmorphone INJ 2 MG/ML SYR/VIAL IV PRN (10:30)
--- NOTE | 2020-10-26 11:23 | Anesthesiology Progress Note ---
Date of Service October 26, 2020 Anesthesia Post Procedure Vital Signs Vital Signs: Temp Pulse Pulse Resp BP Pulse Ox 10/26/20 11:10 36.9 C 78 11 L 119/58 L 97 10/26/20 11:00 36.9 C 79 16 111/76 95 10/26/20 10:50 36.9 C 67 9 L 130/82 95 10/26/20 10:40 78 8 L 128/75 97 10/26/20 10:30 66 16 131/74 97 10/26/20 10:20 79 14 131/81 98 10/26/20 10:12 36.4 C L 62 10 L 110/67 99 10/26/20 07:03 37 C 56 L 18 130/84 96 Pain Intensity Right Back: Pain Intensity: 4 Transfer of Care Handoff Completed per policy Notes Mental Status: alert / awake / arousable and participated in evaluation Patient Amnestic to Procedure: Yes Nausea / Vomiting: adequately controlled Pain: adequately controlled Airway Patency, RR, SpO2: stable & adequate BP & HR: stable & adequate Hydration State: stable & adequate Anesthetic Complications: no major complications apparent and Pt Satisfied with anesthetic care
[2020-10-26] MEDS: LACTATED RINGER'S 1,000 ML IV SCH ×2 (11:30→20:14)
[2020-10-26] MEDS ORDERED: DO NOT ADMINISTER PNEUMOCOCCAL VACCINE PRN (11:42)
[2020-10-26] MEDS ORDERED: LORazepam 0.5 MG/1 ML VIAL IV PRN (11:42)
[2020-10-26] MEDS ORDERED: NALOXONE HCL 0.4 MG/1 ML VIAL/CARP IV PRN (11:42)
[2020-10-26] MEDS ORDERED: diphenhydrAMINE Capsule 25 MG CAP PO PRN (11:42)
[2020-10-26] MEDS ORDERED: ALUMINUM/MAGNESIUM SUSP 30 ML UDC PO PRN (11:42)
[2020-10-26] MEDS ORDERED: ONDANSETRON 4 MG OD TAB PO PRN (11:42)
[2020-10-26] MEDS ORDERED: hydrOXYzine HCl 25 MG TAB PO PRN (11:42)
[2020-10-26] MEDS ORDERED: bisacodyL 10 MG SUPP PR PRN (11:42)
[2020-10-26] MEDS ORDERED: DO NOT ADMINISTER FLU VACCINE PRN (11:42)
[2020-10-26] MEDS ORDERED: ACETAMINOPHEN 1,000 MG/100 ML VIAL IV PRN (11:42)
[2020-10-26] MEDS ORDERED: PROMETHAZINE HCL 12.5 MG in SODIUM CHLORIDE 0.9% 50 ML IV PRN (11:42)
[2020-10-26] MEDS ORDERED: FAMOTIDINE 20 MG TAB PO PRN (11:42)
[2020-10-26] MEDS ORDERED: LORazepam 0.5 MG TAB PO PRN (11:42)
[2020-10-26] MEDS ORDERED: SOD PHOSPHATE/SOD BIPHOSPHATE ENEMA 132 ML BTL PR PRN (11:42)
[2020-10-26] MEDS ORDERED: HYDROmorphone INJ 0.5 MG/0.5 ML SYR IV PRN (11:42)
[2020-10-26] MEDS ORDERED: ACETAMINOPHEN 500 MG TAB PO PRN (11:42)
[2020-10-26] MEDS ORDERED: MAGNESIUM HYDROXIDE SUSP 30 ML UDC PO PRN (11:42)
[2020-10-26] MEDS: GENERAL ORDER PROBLEM SCH ×5 (12:04→20:29)
--- NOTE | 2020-10-26 12:48 | Fluoroscopy Report ---
FL lumbar spine 2-3V CLINICAL HISTORY: L4-S1 DECOMP/FUSION COMPARISON STUDY: Lumbar spine MRI July 20, 2020. FLUOROSCOPY TIME: 32 seconds. FLUOROSCOPIC IMAGES: 3 FINDINGS: Fluoroscopy was provided during L4-L5 and L5-S1 discectomies with interbody spacer placemen t. Posterior decompression is noted with bilateral pedicle screws at the L4, L5 and S1 levels. There are interconnecting rods. Hardware is intact. IMPRESSION: Fluoroscopy provided during L4-S1 posterior decompression, discectomy and bilateral pedi brendon screw fusion. ACT 112: Negative or not required by law. Electronically signed by: Travis Narvaez M.D. 10/26/2020 12:47 PM
[2020-10-26] MEDS: KETOROLAC 30 MG/ML VIAL IV SCH ×2 (13:55→20:20)
[2020-10-26] MEDS: CLINDAMYCIN 600 MG in DEXTROSE 5% 50 ML IV SCH (15:44)
--- NOTE | 2020-10-26 16:19 | Hospitalist Consultation ---
Date of Consultation October 26, 2020 Assessment & Plan (1) Neurogenic claudication due to lumbar spinal stenosis: - S/P Lumbar Decompression/Fusion on Oct - Pain management, DVT Prophylaxis, PT/OT, Surgical management per primary - Dong overall well post-operatively; labs in AM - Some post-op nausea treated with Zofran (2) Barretts esophagus: - STABLE - Continue Protonix as Omeprazole interchange (3) Hyperlipidemia: - Continue Atorvastatin 20 mg HS Pt with minimal medical conditions, which require no acute management. Will monitor labs; will monitor peripherally. Please do not hesitate to contact Hospitalist service with any needs or any change in medical status. Supervising Physician Co-Signing Physician Notes Patient seen and examined with Anita Donnelly PA-C. I agree with her exam findings, review of systems, assessment and plan. I personally reviewed the lab work and imaging as well. patient doing great, minimal pain, eating/drinking well, no dyspnea, no chest pain - s/p lumbar surgery: follow labs, management per Dr. Kendall - h/o Carpenter's esophagus: continue PPI History of Present Illness Reason for Consultation: Medical Management Attending Physician: Mateusz Kendall DO History of Present Illness Mr. Rodriguez is a 60 y/o male with PMHx of Carpenter's Esophagus and HLD who is S/P Lumbar Decompression/Fusion on 26 October. He is doing overall well post- operatively. He was experiencing some nausea while up on the floor. Pain is starting to increase during my visit. He has no cardiac history of CHF, CAD. He has never had a blood clot. His chronic conditions require no acute intervention. Allergies Allergy/AdvReac Type Severity Reaction Status Date / Time Penicillins Allergy Mild Unknown Verified 10/26/20 06:57 Home Medications Medication Instructions Recorded Confirmed Type loratadine 10 mg tablet (Claritin) 10 mg PO QAM 08/20/18 10/26/20 History Cock-Up Wrist Splint #1 ea 11/11/18 10/17/20 Rx clobetasol 0.05 % topical ointment 1 appln TOP BID PRN 11/18/19 10/26/20 History (Temovate) clotrimazole-betamethasone 1 1 appln TOP BID PRN 11/18/19 10/26/20 History %-0.05 % topical cream omeprazole 20 mg tablet,delayed 20 mg PO QPM #90 tab 04/01/20 10/26/20 Rx release atorvastatin 20 mg tablet 20 mg PO QPM #90 tab 04/04/20 10/26/20 Rx meloxicam 7.5 mg tablet 7.5 mg PO DAILY PRN #30 tab 08/23/20 10/26/20 Rx oxycodone 5 mg tablet 5 mg PO Q6H PRN #30 tab 10/27/20 Rx tramadol 50 mg tablet 50 mg PO Q6H PRN #30 tab 10/27/20 Rx Patient History Medical History Allergic rhinitis due to pollen Barretts esophagus No issues with Dermatitis, eczematoid No current issues GERD (gastroesophageal reflux disease) Well controlled and stable Hyperlipemia Migraines Osteoarthritis Surgical History History of colonoscopy History of esophagogastroduodenoscopy (EGD) History of lumbar laminectomy L5-S1 2006 History of root canal procedure History of tonsillectomy Family History Father Prostate cancer Hypertension Unknown Hyperthyroidism Mother Parkinson disease Other No family history of adverse response to anesthesia Denies family history of Ovarian cancer Myocardial infarction Breast cancer Colorectal cancer Social History Smoking Status: Never smoker Second Hand Exposure: No; Do You Dip or Chew Tobacco: No; Tobacco Cessation Education Requested by Patient: No Hx Alcohol Use: Yes Alcohol type: beer, wine and hard liquor Alcohol Intake Frequency: 2-3 x/Week Hx Substance Use: No Preferred Language: [place] Communication Ability: Effective Visual Impairment: No Limitations Hearing Ability: Normal Admissions Counselor Required: No Beliefs That Will Affect Care: None marital status: Single Current Living Situation: Alone current occupational status: employed current occupation: Landlord How many Children do You have: 0 Other Information That Helps Us Care for You: No Feels Safe at Home: Yes Safety Concerns: Feels Safe At This Time Childhood Exposure to Second-Hand Smoke: No caffeine: Yes Dental Care, Regularly: Yes Physical Activity Frequency: 3-4 Times per Week Seatbelt Use: never Sunscreen Use: No Assistive Devices: Walker Review of Systems Review of Systems: REVIEW OF SYSTEMS General/Constitutional: Denies fever/chills, fatigue, weakness, weight gain/loss ENT: Denies visual changes, nasal drainage, hearing loss, sore throat, trouble swallowing Cardiovascular: Denies chest pain, palpitations, edema Respiratory: Denies cough, sputum, SOB, wheezing, orthopnea GI: + nausea; Denies vomiting, abdominal pain, constipation, diarrhea, melena/hematochezia : Denies dysuria, frequency, hematuria Musculoskeletal: + back pain; Denies other joint/muscle aches, weakness, swelling Neurologic: Denies dizziness/lightheadedness, numbness/tingling, weakness Hematologic/Lymphatic: Denies bleeding/clotting abnormalities Skin: Denies rash, itch, new skin changes, easy bruising Physical Exam Physical Exam: PHYSICAL EXAM General Appearance: WDWN in NAD who is A&O x 3 HEENT: Head is normocephalic/atraumatic; EOMI; PERRLA; Hearing grossly intact; Mucous membranes moist; Pharynx negative for exudate/lesions Neck: Supple; Trachea midline; Neg JVD; Neg lymphadenopathy Heart: RRR with no M/G/R Lungs: CTA in all lung trivedi bilaterally; Respirations unlabored; Neg accessory muscle use Abdomen: Soft, non-tender, non-distended; Positive BS x 4 quadrants; Neg organomegaly Extremities: Capillary refill < 2 seconds; Neg cyanosis or edema Neurological: Speech clear; Gross motor/sensory function intact; Neg focal neurologic deficits Psychiatric: Appropriate mood/affect Skin: Normal Color; Warm/Dry; Neg rashes, ecchymosis, lacerations/ulcerations Results & Data Results & Data ([facility]) Vital Signs (Past 12 Hours) Vital Signs Temp Pulse Pulse Resp BP Pulse Ox 10/26/20 15:13 36.7 C 77 16 125/71 97 10/26/20 13:35 36.6 C 59 L 16 120/76 95 10/26/20 12:34 36.8 C 73 16 118/71 96 10/26/20 12:06 36.7 C 56 L 16 130/81 97 10/26/20 11:42 36.7 C 73 16 132/82 97 10/26/20 11:10 36.9 C 78 11 L 119/58 L 97 10/26/20 11:00 36.9 C 79 16 111/76 95 10/26/20 10:50 36.9 C 67 9 L 130/82 95 10/26/20 10:40 78 8 L 128/75 97 10/26/20 10:30 66 16 131/74 97 10/26/20 10:20 79 14 131/81 98 10/26/20 10:12 36.4 C L 62 10 L 110/67 99 10/26/20 07:03 37 C 56 L 18 130/84 96 PG Care Time/CCT Total # of Minutes Spent Total Time Spent with Patient: Total time spent is greater than 50% in coordination of care (as documented) at patient's floor/unit and/or counseling patient: Coding Level of Care Code 60262 Inpt Consult Level 2 Diagnoses Neurogenic claudication due to lumbar spinal stenosis M48.062 Barretts esophagus K22.70 Carpenter's esophagus type: without dysplasia Hyperlipidemia E78.2 Hyperlipidemia type: mixed hyperlipidemia (1) Hyperlipidemia Hyperlipidemia type: mixed hyperlipidemia Qualified Code(s): E78.2 - Mixed hyperlipidemia (2) Barretts esophagus Carpenter's esophagus type: without dysplasia Qualified Code(s): K22.70 - Carpenter's esophagus without dysplasia
[2020-10-26] MEDS: METOCLOPRAMIDE HCL INJ 5 MG/ML 2 ML VIAL IV PRN (20:11)
[2020-10-26] MEDS: HYDROmorphone INJ 1 MG/ML SYRINGE IV PRN (20:12)
[2020-10-26] MEDS: ATORVASTATIN 20 MG TAB PO SCH (22:01)
[2020-10-26] MEDS: PANTOprazole 40 MG TAB PO SCH (22:02)
[2020-10-26] MEDS: DOCUSATE SODIUM/SENNA 50/8.6MG TAB PO SCH (22:02)
[2020-10-26] MEDS ORDERED: COUGH DROP (SUGAR FREE) LOZ 24 LOZ/1 BOX BUCCAL PRN (22:09)
[2020-10-27] MEDS: CLINDAMYCIN 600 MG in DEXTROSE 5% 50 ML IV SCH (00:42)
[2020-10-27] MEDS: KETOROLAC 30 MG/ML VIAL IV SCH ×2 (01:16→07:55)
[2020-10-27] MEDS: HYDROmorphone INJ 1 MG/ML SYRINGE IV PRN (02:50)
[2020-10-27] MEDS: POLYETHYLENE (MIRALAX) 17 GM PACK PO SCH ×3 (05:44→18:12)
[2020-10-27 06:09] LABS: Hemoglobin 12.1 g/dL (14.0-18.0); Immature Granulocytes # (auto) 0.02 K/uL (0.00-0.02); Immature Granulocytes % (auto) 0.2 %; Lymphocytes # (auto) 1.28 K/uL (1.2-3.4); Lymphocytes % (auto) 11.4 %; Mean Corpuscular Hemoglobin 31.3 pg (25-34); Mean Corpuscular Hgb Conc 32.7 g/dL (32-36); Mean Corpuscular Volume 95.9 fL (80-100); Mean Platelet Volume 9.9 fL (7.4-10.4); Monocytes # (auto) 0.53 K/uL (0.11-0.59); Monocytes % (auto) 4.7 %; Neutrophils # (auto) 9.37 K/uL (1.4-6.5); Neutrophils % (auto) 83.7 %; Platelet Count 216 K/uL (130-400); RDW Standard Deviation 45.8 fL (36.4-46.3); Red Blood Count 3.86 M/uL (4.7-6.1)
[2020-10-27 06:35] LABS: BUN Creatinine Ratio 19.2 (10-20); Calcium 8.2 mg/dl (8.5-10.1); Creatinine Clr Calc Pharmacy 95.5 ml/min; Est GFR (African American) 96.2 ml/min; Potassium 4.3 mmol/L (3.5-5.1)
[2020-10-27] MEDS: LORATADINE 10 MG TAB PO SCH (08:01)
--- NOTE | 2020-10-27 08:17 | Orthopedic Progress Note ---
Date of Service October 27, 2020 Assessment & Plan (1) Neurogenic claudication due to lumbar spinal stenosis: Plan: We will initiate physical therapy today monitor his PIERCE output hopefully discharge home in the next few days. Admission and Anticipated Discharge Date Admission Date: October 26, 2020 Subjective Back pain controlled leg symptoms improved Physical Exam Physical Exam: Patient is good strength testing. Appears comfortable. Results & Data ([facility]) Vital Signs (Past 12 Hours) Vital Signs Temp Pulse Resp BP Pulse Ox 10/27/20 04:04 36.8 C 57 L 18 109/62 92 10/26/20 23:15 37 C 55 L 18 101/55 L 96
[2020-10-27] MEDS: oxyCODONE HCL IR 5 MG TAB (IMMEDIATE RELEASE) PO PRN ×3 (11:27→19:46)
[2020-10-27] MEDS: ATORVASTATIN 20 MG TAB PO SCH (20:38)
[2020-10-27] MEDS: DOCUSATE SODIUM/SENNA 50/8.6MG TAB PO SCH (20:38)
[2020-10-27] MEDS: PANTOprazole 40 MG TAB PO SCH (20:38)
[2020-10-27] MEDS: traMADol HCL 50 MG TABLET PO PRN (22:08)
[2020-10-28] MEDS: oxyCODONE HCL IR 5 MG TAB (IMMEDIATE RELEASE) PO PRN ×2 (01:06→06:39)
[2020-10-28] MEDS: POLYETHYLENE (MIRALAX) 17 GM PACK PO SCH ×3 (01:09→12:36)
[2020-10-28] MEDS: traMADol HCL 50 MG TABLET PO PRN ×3 (04:14→15:41)
[2020-10-28] MEDS: LORATADINE 10 MG TAB PO SCH (08:24)
[2020-10-28] MEDS ORDERED: dexAMETHasone 8 MG in SYRINGE 0 ML IV SCH (09:00)
--- NOTE | 2020-10-28 09:07 | Discharge Summary ---
Date of Service October 28, 2020 Principal Diagnosis Lumbar spinal stenosis with neurogenic claudication Discharge Data Allergies Allergy/AdvReac Type Severity Reaction Status Date / Time Penicillins Allergy Mild Unknown Verified 10/26/20 06:57 Consultations 10/26/20 11:42 Consult Hospitalist Routine Procedures Performed Operation Date: 10/26/20 07:45 Actual Procedures p L4-S1 Decompression Fusion, Spinal Cord Monitoring(Not Applicable) - Mateusz Kendall DO Ordered Studies 10/26/20 09:35 [place] lumbar spine 2-3V Routine Hospital Course (1) Neurogenic claudication due to lumbar spinal stenosis: Patient will decompression fusion trial as well as taken orthopedic for postop labor postop day 1 is up and ambulating with us postop day #2 PIERCE drain decreased appropriately. Pain well controlled. No leg pain. Excellent strength testing. Subsequent discharge home. Discharge orders instructions from the chart for further review. Total Time Total Time Spent Total Time Spent (In Minutes): 20 minutes Discharge Plan Discharge Items Patient Disposition: Home - Self-Care Reason For Visit: Interevertebral Disc Disorders with radiculopathy Discharge Diagnosis: Lumbar spinal stenosis with radiculopathy Activity: As commented below Non-emergency contact: Primary Care Provider Call non-emergency contact if: you have any medication questions Follow-up/Referrals: Alex Mcmahan MD [Primary Care Provider] - Diet: Regular Addtl Attending Provider Instructions: ACTIVITY RECOMMENDATIONS: SELF CARE INSTRUCTIONS AFTER THORACIC/LUMBAR FUSIONS 1. You may walk to your tolerance. It is good exercise for your legs and back. Expect some back and intermittent leg aches and pains. 2. You may perform "counter-top" level activities (make a sandwich, oracio with a project, etc.). 3. No bending or lifting of more than 10 pounds or back twisting of any nature (roll like a log when turning in bed). 4. You may ride in a car for 20-30 minutes at a time. No driving until after your first visit with your doctor. 5. Frequent changes of position and restricting sitting to 30 minutes at a time will help limit the amount of back spasms and stiffness you may experience. 6. You may discontinue the use of ambulatory aids (cane, crutches, etc.) once your strength and confidence allow. 7. You may well surveying engineer the shower and let water strike your incision when you arrive home at least once daily. Do not take a tub bath, sit in a hot tub or go into a swimming pool until after your first recheck in the office. SPECIAL CARE INSTRUCTIONS: VERY IMPORTANT TO READ AND REVIEW A. Your surgical incision has been closed with a cosmetic suture under the skin that will dissolve in about 6 weeks. In 14 days, you can use a pair of clean scissors and cut the suture that is left outside of the skin at the ends of your incision. 1. The small skin tapes can be removed 7 days after surgery if they have not fallen off by that point. 2. You may keep the wound open to air as much as possible to promote healing after post-op day number 5 unless told otherwise by your doctor. 3. If you think the wound looks like it is becoming infected (redness or worsening drainage) and/or you are experiencing fever, chill or worsening back pain and muscle spasms, contact the office so that we may evaluate you as soon as possible. B. Complications are uncommon, but please contact us if you have any signs or symptoms of: 1. wound infection (fever higher than 102.5 degrees F, redness, separation of wound, drainage, or increasing pain from the incision) 2. blood clots in legs (pain, swelling, redness and warmth in legs) 3. urinary tract infection (fever higher than 102.5 degrees F, burning upon urination or increased frequency of urination) 4. nerve problems (inability to walk on your toes or heels, numbness, loss of bowel or bladder control) 5. any other symptoms that concern you C. Please call the office at if you have any concerns or questions about your operation or recovery. D. No smoking! Smoking drastically decreases the chance of a solid fusion. E. Do not take any anti-inflammatory medications (Indocin, Advil, Motrin, Aspirin, Naprosyn, etc.) as these may inhibit the chance of a solid fusion. Tylenol is okay to take for pain. MANAGING PAIN AFTER SPINAL SURGERY 1. Narcotic medication is intended for short-term use and will be provided for surgical pain. Surgical pain usually lasts for a period of 4-6 weeks. Narcotic medication includes Percocet, Vicodin, Darvocet, Tylenol #3 or Lortab. 2. Longer-term pain is more appropriately treated with non-narcotic medication such as Tylenol ES. 3. Muscle spasm is not appropriately treated with narcotics. Muscle relaxers such as Soma, Flexeril or Skelaxin can be used along with Tylenol ES. 4. Remember that we all live with some "aches and pains". This is not unusual or uncommon after an injury or as we get older. a. Back pain is expected and may include muscle spasms for 4 to 6 weeks after surgery. The pain should gradually improve. If the pain worsens for no apparent reason, please contact the office. b. Intermittent leg pain may also be experienced and should not be concerned about unless it worsens for no apparent reason. If so, please contact the office. 5. We will provide appropriate medication within the normal guidelines of their prescribed use. We will also be very cautious and aware of potential abuse and extended duration of patients' medication needs. a. Pain medications are for your comfort and to assist with sleep and rest so that the tissue can heal. They are not provided in order to return to normal activity and should not be used through the day. To do so or worsening pain at night can result from ongoing tissue damage and de velopment of tolerance to the prescribed medicine. 6. Please allow 2-3 days to process refills. Prescriptions will not be mailed but must be picked up at the office. FOLLOW UP VISIT: Keep your scheduled follow-up appointment. Any questions, please call the office at . Pending Studies at Discharge: No Stand-Alone Forms: [facility], Smoking Cessation Medications and DC Order Prescriptions: New oxycodone 5 mg tablet 5 mg PO Q6H PRN (Reason: pain, severe) Qty: 30 RF: 0 tramadol 50 mg tablet 50 mg PO Q6H PRN (Reason: pain, moderate) Qty: 30 RF: 0 Continued omeprazole 20 mg tablet,delayed release (DR/EC) 20 mg PO QPM Qty: 90 RF: 3 atorvastatin 20 mg tablet 20 mg PO QPM Qty: 90 RF: 3 meloxicam 7.5 mg tablet 7.5 mg PO DAILY PRN (Reason: pain) Qty: 30 RF: 2 (DME) Cock-Up Wrist Splint Misc See Dose Instructions .ROUTE .MEDSUPPLY Qty: 1 RF: 0 loratadine [Claritin] 10 mg tablet 10 mg PO QAM RF: 0 clotrimazole-betamethasone 1-0.05 % cream 1 appln TOP BID PRN (Reason: ud) RF: 0 clobetasol [Temovate] 0.05 % ointment 1 appln TOP BID PRN (Reason: ud) RF: 0 Discharge Orders: Discharge Order (Routine); Ordered 10/28/20 Ordered By: Mateusz Kendall Admission Data Admit Date/Time: 10/26/20 10:04 Attending Provider: Mateusz Kendall Admit Provider: Mateusz Kendall Primary Care Provider: Alex Mcmahan Other Providers: Antolin Gold
[2020-10-28] MEDS: METOCLOPRAMIDE HCL INJ 5 MG/ML 2 ML VIAL IV PRN (10:46)
== END 2020-10-28 15:55 | disposition home or self-care (01) | DRG 455 ==
LOC: ASU 06:10 → 3E 10:04